=== PATIENT | female | born 2005 | race Two or more races ===

== ENCOUNTER 2023-07-01 08:48 | Emergency (ER) | payer OTHER ==
[~2023-07-01] VITALS: Ht 157.5 cm; Wt 50.0 kg
[2023-07-01 10:23] VITALS: BP 139/82; PULSE 64; RESP 18; TEMP 97.6; O2SAT 100
[2023-07-01] MEDS ORDERED: FLUT1SPR5 (10:57)
[2023-07-01] MEDS ORDERED: FEXO-42 PO (10:57)
[2023-07-01] MEDS ORDERED: DexAMETHasone SOD PHOS 10MG/1ML VIAL INJ IM ONE (11:00)
== END 2023-07-01 11:12 | disposition home or self-care (01) ==
LOC: ER 08:48
DX: J30.2 Other seasonal allergic rhinitis (principal)
CPT/HCPCS: 96372; 99283; J1100